=== PATIENT | female | born 1960 | race Hispanic/Latino ===

== ENCOUNTER 2021-02-06 13:46 | Emergency (ER) | payer OTHER, SELFPAY ==
[~2021-02-06] VITALS: Ht 154.9 cm; Wt 63.8 kg
[2021-02-06 16:14] LABS: RSV AMPLIFICATION NEGATIVE (NEGATIVE)
[2021-02-06 18:16] VITALS: BP 134/77
== END 2021-02-06 18:21 | disposition home or self-care (01) ==
LOC: M ED 13:46
DX: J06.9 Acute upper respiratory infection, unspecified (principal); B34.9 Viral infection, unspecified; Z88.8 Allergy status to other drugs, medicaments and biological substances